=== PATIENT | male | born 1965 | race African-American/Black ===

== ENCOUNTER 2018-10-23 06:15 | Inpatient (IN) | payer OTHER ==
[~2018-10-23] VITALS: Ht 182.9 cm; Wt 165.1 kg
[2018-10-23] VITALS (8 sets, daily range): BP systolic 136–184; BP diastolic 80–101
[2018-10-23 07:11] LABS: HEMATOCRIT 43.8 % (42.0-52.0); HEMOGLOBIN 14.4 gm/dL (14.0-18.0); MCH 29.5 pg (26.0-34.0); MCHC 32.8 g/dL (28.0-37.0); MCV 90.1 fL (80.0-100.0); PLATELET COUNT 164 thou/uL (150-400); RBC 4.87 mil/uL (4.50-6.00); RDW 12.9 % (10.5-14.5); WBC 2.6 thou/uL (4.0-11.0)
[2018-10-23 07:15] LABS: CALCIUM 8.9 mg/dL (8.5-10.1); CREATININE 1.4 mg/dL (0.7-1.3); POTASSIUM 3.6 mmol/L (3.5-5.1)
[2018-10-23 07:46] LABS: ABSOLUTE NEUTROPHILS 1.3 thou/uL (1.4-8.2); ANISOCYTOSIS 1+; POLYCHROMASIA OCCASIONAL
[2018-10-23 09:40] LABS: URINE BILIRUBIN NEGATIVE (Negative); URINE BLOOD NEGATIVE (Negative); URINE CLARITY CLEAR; URINE COLOR YELLOW; URINE GLUCOSE-RANDOM* NEGATIVE (Negative); URINE KETONES NEGATIVE (Negative); URINE LEUKOCYTES NEGATIVE (Negative); URINE NITRITE NEGATIVE (Negative); URINE PROTEIN (DIPSTICK) NEGATIVE (Negative); URINE SPECIFIC GRAVITY 1.015 (1.005-1.035); URINE UROBILINOGEN 0.2 E.U./dl (0.2-1.0)
[2018-10-23 09:56] LABS: BE(vivo) 6.6 mmol/L (-2 to +3); PCO2 59.7 mmHg (35.0-45.0); PO2 59.1 mmHg (80.0-100.0); pH 7.373 (7.360-7.450); sO2 89.3 % (92.0-98.0)
[2018-10-23] MEDS ORDERED: DIOVAN320 MG PO (17:25)
[2018-10-23] MEDS ORDERED: ZANTAC 150MG T150 MG PO (17:26)
[2018-10-23] MEDS ORDERED: VENTOLIN HFA 1818 GM INH (17:27)
[2018-10-23] MEDS ORDERED: SINGULAIR 10 MG10 M1 PO (17:28)
[2018-10-23] MEDS ORDERED: AMLODIPINE BESY10 MG PO (17:29)
[2018-10-23] MEDS ORDERED: CIALIS20 MG PO (17:31)
[2018-10-23] MEDS ORDERED: NAPROSYN500 MG PO (17:32)
[2018-10-23] MEDS ORDERED: CARISOPRODOL 3350 MG PO (17:33)
[2018-10-23] MEDS ORDERED: FLONASE 0.05%50 MCG NASAL (17:34)
[2018-10-23] MEDS ORDERED: ZYLOPRIM300 MG PO (17:37)
[2018-10-23] MEDS ORDERED: NORCO 5-325 TA1 EAC1 PO (17:40)
[2018-10-23] MEDS ORDERED: FLOMAX0.4 MG PO (17:41)
[2018-10-23] MEDS ORDERED: ECOTRIN325 MG PO (17:42)
[2018-10-23] MEDS ORDERED: HYDROCHLOROTHIA25 M2 PO (20:00)
[2018-10-24 04:30] VITALS: BP 167/85
[2018-10-24 07:22] VITALS: BP 150/82
[2018-10-24 11:46] VITALS: BP 150/82
== END 2018-10-24 13:59 | disposition home or self-care (01) | DRG 206 ==
LOC: ER 06:15 → EROBS 10:40 → 3W 11:29
PROVIDERS: Student in an Organized Health Care Education/Training Program; ADMIT Hospitalist
DX: R09.02 Hypoxemia (principal); Z68.42 Body mass index [BMI] 45.0-49.9, adult; I10 Essential (primary) hypertension; M10.9 Gout, unspecified; G47.33 Obstructive sleep apnea (adult) (pediatric); E66.01 Morbid (severe) obesity due to excess calories; Z91.19 Patient's noncompliance with other medical treatment and regimen
CPT/HCPCS: 10080

== ENCOUNTER 2018-10-30 12:02 | Emergency (ER) | payer OTHER ==
[~2018-10-30] VITALS: Ht 190.5 cm; Wt 127.0 kg
[~2018-10-30 12:02] MED LIST: AMLODIPINE BESY10 MG PO; CARISOPRODOL 3350 MG PO; CIALIS20 MG PO; DIOVAN320 MG PO; ECOTRIN325 MG PO; FLOMAX0.4 MG PO; FLONASE 0.05%50 MCG NASAL; HYDROCHLOROTHIA25 M2 PO; NAPROSYN500 MG PO; NORCO 5-325 TA1 EAC1 PO; SINGULAIR 10 MG10 M1 PO; VENTOLIN HFA 1818 GM INH; ZANTAC 150MG T150 MG PO; ZYLOPRIM300 MG PO
[2018-10-30 13:53] LABS: HEMATOCRIT 42.4 % (42.0-52.0); HEMOGLOBIN 14.4 gm/dL (14.0-18.0); MCV 88.4 fL (80.0-100.0); PLATELET COUNT 169 thou/uL (150-400); RBC 4.79 mil/uL (4.50-6.00); RDW 12.8 % (10.5-14.5); WBC 3.8 thou/uL (4.0-11.0)
[2018-10-30 13:55] LABS: CALCIUM 9.5 mg/dL (8.5-10.1); CREATININE 1.1 mg/dL (0.7-1.3)
[2018-10-30 13:57] LABS: POTASSIUM 3.7 mmol/L (3.5-5.1)
[2018-10-30 14:02] LABS: ALBUMIN 3.6 g/dL (3.4-5.0); TOTAL BILIRUBIN 0.6 mg/dL (<0.1-1.0)
[2018-10-30 14:28] LABS: URINE BILIRUBIN NEGATIVE (Negative); URINE BLOOD NEGATIVE (Negative); URINE CLARITY CLEAR; URINE COLOR YELLOW; URINE GLUCOSE-RANDOM* NEGATIVE (Negative); URINE KETONES NEGATIVE (Negative); URINE LEUKOCYTES-REFLEX NEGATIVE (Negative); URINE NITRITE-REFLEX NEGATIVE (Negative); URINE PROTEIN (DIPSTICK) NEGATIVE (Negative)
[2018-10-30 14:29] LABS: ABSOLUTE NEUTROPHILS 1.4 thou/uL (1.4-8.2); ATYPICAL LYMPHS 2 %
[2018-10-30 16:26] LABS: AMP/METHAMP Negative (Negative); BARBITURATES Negative (Negative); BENZODIAZEPINES Negative (Negative); COCAINE Negative (Negative); METHADONE Negative (Negative); OPIATES Negative (Negative); PCP Negative (Negative)
[2018-10-30 16:34] LABS: BE(vivo) 6.7 mmol/L (-2 to +3); HCO3 31.8 mmol/L (22.0-26.0); PCO2 46.9 mmHg (35.0-45.0); PO2 62.5 mmHg (80.0-100.0); pH 7.449 (7.360-7.450); sO2 92.7 % (92.0-98.0)
[2018-10-30] MEDS ORDERED: PROTONIX40 MG PO (18:36)
[2018-10-30] MEDS ORDERED: ZOFRAN4 MG PO (18:36)
[2018-10-30 19:02] VITALS: BP 162/78
--- NOTE | 2018-10-31 11:43 | EKG ---
[address] [place] [address] ELECTROCARDIOGRAM REPORT Name: RYDER GRAHAM Room #: DEP Annabella#: [id number] Admission: 10/30/18 Attend Phys: Discharge: 10/30/18 Date of : 65 Report #: [id number] THIS REPORT FOR: //name// [facility] ED Test Date: 2018-10-30 Test Time: 12:47:29 Pat Name: RYDER GRAHAM Department: Room: Gender: Claims Agent Right Of Way: THERESE : 1965 Requested By: Ryder Granados Order Number: [id number] MD: Erasmo Crawford Measurements Intervals [place] Rate: 62 P: 36 SC: 180 QRS: 44 QRSD: 81 T: 226 QT: 430 QTc: 437 Interpretive Statements Sinus rhythm Abnormal T, consider ischemia, diffuse leads No previous ECG available for comparison Electronically Signed On 10-31-2018 11:43:34 CDT by Erasmo Crawford [email or web address] <ELECTRONICALLY SIGNED> By: Erasmo Crawford MD 10/31/18 1143 [id number] Erasmo Crawford MD /EPI
== END 2018-10-30 19:04 | disposition home or self-care (01) ==
LOC: ER 12:02
PROVIDERS: Emergency Medicine
DX: R11.0 Nausea (principal); R53.1 Weakness; L83 Acanthosis nigricans; I10 Essential (primary) hypertension; G47.30 Sleep apnea, unspecified; E66.01 Morbid (severe) obesity due to excess calories; Z68.35 Body mass index [BMI] 35.0-35.9, adult

== ENCOUNTER 2019-03-28 16:25 | Emergency (ER) | payer BC ==
[~2019-03-28] VITALS: Ht 182.9 cm; Wt 151.5 kg
[~2019-03-28 16:25] MED LIST changes: +PROTONIX40 MG PO; +ZOFRAN4 MG PO
[2019-03-28 17:30] VITALS: BP 164/98
[2019-03-28] MEDS ORDERED: PROMETH-CODEIN 65 ML PO (20:37)
== END 2019-03-28 20:48 | disposition home or self-care (01) ==
LOC: ER 16:25
DX: R07.81 Pleurodynia (principal); R05 Cough; I10 Essential (primary) hypertension; G47.30 Sleep apnea, unspecified; M45.9 Ankylosing spondylitis of unspecified sites in spine; Z79.82 Long term (current) use of aspirin; Z79.899 Other long term (current) drug therapy